=== PATIENT | male | born 1965 | race Caucasian/White ===

== ENCOUNTER 2024-09-25 08:13 | Day surgery (SDC) | payer OTHER ==
[~2024-09-25 08:13] MED LIST: Sodium Chloride 0.9% 10 ML Syringe FLUSH PRN; Sodium Chloride 0.9% 10 ML Syringe FLUSH SCH
[2024-09-25] MEDS: Lactated Ringers 1,000 ML IV SCH (08:35)
[2024-09-25] MEDS ORDERED: Ondansetron 4 MG/2 ML SDV IVPUSH PRN (08:56)
[2024-09-25] MEDS ORDERED: HYDROmorphone 0.5 MG/0.5 ML Syringe IVPUSH PRN (08:56)
[2024-09-25] MEDS ORDERED: fentaNYL 100 MCG/2 ML SDV IVPUSH PRN (08:56)
[2024-09-25] MEDS ORDERED: Propofol 200 MG/20 ML SDV ONE (09:56)
[2024-09-25] MEDS ORDERED: Midazolam 1 MG/ML 2 ML SDV ONE (09:56)
[2024-09-25] MEDS ORDERED: fentaNYL 100 MCG/2 ML SDV ONE ×2 (09:56→11:05)
[2024-09-25] MEDS ORDERED: ceFAZolin 2 GM Vial ONE (11:05)
[2024-09-25] MEDS: Bupivacaine 0.25% 10 ML SDV ONE (11:07)
[2024-09-25] MEDS: EPINEPHrine 1 MG/ML SDV ONE (11:07)
[2024-09-25] MEDS: Acetaminophen/HYDROcodone 325-5 MG Tab PO PRN (12:00)
== END 2024-09-25 13:00 | disposition home or self-care (01) ==
LOC: JD.SDS 08:13
PROVIDERS: ATTEND Orthopaedic Surgery
DX: S83.241A Other tear of medial meniscus, current injury, right knee, initial encounter (principal); H60.552 Acute reactive otitis externa, left ear; Z79.899 Other long term (current) drug therapy; X58.XXXA Exposure to other specified factors, initial encounter
CPT/HCPCS: 29881; A9270; J0171; J0665; J0690; J2250; J2704; J3010; J7120